=== PATIENT | female | born 1980 | race American Indian/Alaskan Native ===

== ENCOUNTER 2023-03-07 18:25 | Emergency (ER) | payer MEDICAID, OTHER ==
[~2023-03-07] VITALS: Ht 167.6 cm; Wt 60.0 kg
[2023-03-07 19:40] VITALS: BP 117/81; PULSE 80; RESP 20; O2SAT 96
== END 2023-03-08 01:03 | disposition home or self-care (01) ==
LOC: ER 18:25 → EDBD 18:25 → ER 03-08 01:03
DX: F12.10 Cannabis abuse, uncomplicated (principal); R94.31 Abnormal electrocardiogram [ECG] [EKG]; J45.909 Unspecified asthma, uncomplicated; F41.9 Anxiety disorder, unspecified; F17.210 Nicotine dependence, cigarettes, uncomplicated
CPT/HCPCS: 93005

== ENCOUNTER 2023-07-16 07:13 | Emergency (ER) | payer MEDICAID ==
[~2023-07-16] VITALS: Ht 160 cm; Wt 63.6 kg
[2023-07-16 07:41] VITALS: BP 111/66; PULSE 65; RESP 16; TEMP 98; O2SAT 100
[2023-07-16] MEDS: DexAMETHasone SOD PHOS 10MG/1ML VIAL INJ IM ONE (08:01)
[2023-07-16] MEDS ORDERED: ALBUAER3 IN (08:01)
[2023-07-16] MEDS ORDERED: PRED20TA2 PO (08:01)
== END 2023-07-16 08:06 | disposition home or self-care (01) ==
LOC: EDBD 07:13 → ER 07:13
DX: J45.901 Unspecified asthma with (acute) exacerbation (principal); F41.9 Anxiety disorder, unspecified; F17.210 Nicotine dependence, cigarettes, uncomplicated; F12.10 Cannabis abuse, uncomplicated
CPT/HCPCS: 71046; 96372; 99283; J1100